=== PATIENT | male | born 1980 | race Two or more races ===

== ENCOUNTER 2024-08-14 03:43 | Emergency (ER) | payer OTHER ==
[~2024-08-14] VITALS: Ht 185.4 cm; Wt 105.2 kg
[2024-08-14 04:30] VITALS: BP 167/109; PULSE 93; RESP 16; TEMP 98.7; O2SAT 96
--- NOTE | 2024-08-14 05:27 | ED.PDOC ---
Back pain HPI HPI Comments PATIENT COMES WITH C/C OF RIGHT ANKLE PAIN 12/10. PATIENT REPORTS THAT HE WAS GETTING OFF OF A FORK LIT AT WORK AND ROLLED HIS ANKLE, PATIENT REPORTS HEARING A POP. OBVIOUS SWELLING TO LATERAL RIGHT ANKLE. DENIES NUMBNESS OR WEAKNESS OR ANY OTHER KNOWN INJURY. Chief Complaint: Lower Extremity Time Seen by MD: 03:46 Primary Care Provider: UNKNOWN Reviewed Notes: Nurses Notes, Medications, Allergies Information Source: Patient Mode of Arrival: Ambulatory Past Medical History PAST MEDICAL HISTORY: Denies Surgical History: Denies all surgeries Family History Family History: Unknown Social History Smoker: Non-Smoker Alcohol: Denies ETOH Use Drugs: Denies Drug Use Constitutional: denies: chills, diaphoresis, fatigue, fever, malaise, sweats, weakness, others EENTM: denies: blurred vision, double vision, ear bleeding, ear discharge, ear drainage, ear pain, ear ringing, eye pain, eye redness, hearing loss, mouth pain, mouth swelling, nasal discharge, nose bleeding, nose congestion, nose dawson n, photophobia, tearing, throat pain, throat swelling, voice changes, others Respiratory: denies: cough, hemoptysis, orthopnea, SOB at rest, shortness of breath, SOB with excertion, stridor, wheezing, others Cardiovascular: denies: chest pain, dizzy spells, diaphoresis, Dyspnea on exertion, edema, irregular heart beat, left arm pain, lightheadedness, palpitations, PND, syncope, others Gastrointestinal: denies: abdomen distended, abdominal pain, blood streaked bowels, constipated, diarrhea, dysphagia, difficulty swallowing, hematemesis, melena, nausea, poor appetite, poor fluid intake, rectal bleeding, rectal pain, vomiting, others Genitourinary: denies: burning, dysuria, flank pain, frequency, hematuria, incontinence, penile discharge, penile sore, pain, testicle pain, testicle swelling, urgency, others Neurological: denies: dizziness, fainting, headache, left sided numbness, left sided weakness, numbness, paresthesia, pre-existing deficit, right sided numbness, right sided weakness, seizure, speech problems, tingling, tremors, weakness, others Musculoskeletal: reports: joint swelling (RIGHT ANKLE LATERAL ASPECT); denies: back pain, gout, joint pain, muscle pain, muscle stiffness, neck pain, others Integumetry: denies: bruises, change in color, change in hair/nails, dryness, laceration, lesions, lumps, rash, wounds, others Allergic/Immunocompromised: denies: Difficulty Healing, Frequent Infections, Hives, Itching, others Hematologic/Lymphatic: denies: anemia, blood clots, easy bleeding, easy bruising, swollen glands, others Endocrine: denies: excessive hunger, excessive sweating, excessive thirst, excessive urination, flushing, intolerance to cold, intolerance to heat, unexplained weight gain, unexplained weight loss, others Psychiatric: denies: anxiety, bipolar disorder, depression, hopeless, panic disorder, schizophrenia, sleepless, suicidal, others Physical Exam General Appearance: No Apparent Distress, Normal HEENT: Pharynx Normal Neck: Full Range of Motion, Non-Tender Respiratory: Lungs Clear, No Respiratory Distress, Normal Breath Sounds Cardiovascular: No Murmur, Normal Peripheral Pulses, Regular Rate/Rhythm Breast Exam: Deferred Gastrointestinal: Non Tender, Soft Genitalia: Deferred Pelvic: Deferred Rectal: Deferred Extremities: Normal capillary refill, Normal inspection, Normal range of motion, Non-tender, No pedal edema Musculoskeletal : Location: Right Extremity Location: Ankle (MODERATE EDEMA LATERAL ASPECT WITH MODERATE TENDERNESS. 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 Was a procedure done?: No Back Pain Differential Dx Differential Diagnosis: Fracture, Musculoskeletal Pain X-Ray, Labs, Meds, VS Vital Signs Date Time Temp Pulse Resp B/P (MAP) Pulse Ox O2 Delivery O2 Flow Rate FiO2 08/14/24 04:30 98.7 93 16 167/109 (128) 96 98.7 X-Ray, Labs, Meds, VS Comment RIGHT ANKLE X-RAY SHOWS NO ACUTE FRACTURES OSSEOUS LESIONS OR DISLOCATIONS DOES SHOW MODERATE SOFT TISSUE SWELLING. PATIENT PLACED IN VELCRO ANKLE SPLINT AND CRUTCHES PROVIDED. SCRIPT IBUPROFEN TAKE MEDICATIONS PRESCRIBED SIDE EFFECTS DISCUSSED. ADVISED PATIENT ON RICE. ADVISED TO FOLLOW UP WITH THE EMPLOYEE [facility]. CONSIDER FURTHER IMAGING IF SYMPTOMS PERSIST SUCH MRI OR REPEAT X-RAY IN 7 DAYS. ER RETURN PRECAUTIONS GIVEN PATIENT INDICATES UNDERSTANDING AND AGREES WITH DISCHARGE PLAN OF CARE. Time of 1ST Reevaluation: 05:24 Reevaluation 1ST: Unchanged Time of 2ND Reevaluation: 05:47 Reevaluation 2ND: Improved Patient Education/Counseling: Diagnosis, Treatment, Prognosis, Need For Follow Up Family Education/Counseling: No Family Present Departure 1 Departure Time of Disposition: 05:47 Impression: Primary Impression: Moderate right ankle sprain Qualified Codes: S93.401A - Sprain of unspecified ligament of right ankle, initial encounter Disposition: HOME / SELF CARE / HOMELESS Condition: Stable e-Prescriptions Ibuprofen (Ibuprofen) 800 Mg Tab 800 MG PO Q8HP PRN for 6 Days, #18 TAB Prov: ZACHARY KWON 08/14/24 Discharged With: Self Critical Care Note Critical Care Time?: No Stability Stability form required: ZACHARY Barksdale Aug 14, 2024 05:27
--- NOTE | 2024-08-14 05:41 | DVH ---
EXAM: XR Right Ankle Complete, 3 or More Views CLINICAL INDICATION: INJURY TECHNIQUE: Frontal, lateral and oblique views of the right ankle. COMPARISON: None FINDINGS: BONES/JOINTS: See below. SOFT TISSUES: Soft tissue swelling without acute fracture. OTHER FINDINGS: . . .. IMPRESSION: 1. Soft tissue swelling without acute fracture. 2. If symptoms persist, further evaluation with CT is recommended.
[2024-08-14] MEDS ORDERED: IBUP-1456 PO (05:46)
[2024-08-14] MEDS: KETOROLAC TROMETH 60MG/2ML VIAL IM ONE (06:12)
== END 2024-08-14 06:23 | disposition home or self-care (01) ==
LOC: ER 03:43
DX: S93.401A Sprain of unspecified ligament of right ankle, initial encounter (principal); X58.XXXA Exposure to other specified factors, initial encounter; Y93.89 Activity, other specified; Y92.89 Other specified places as the place of occurrence of the external cause; Y99.8 Other external cause status
CPT/HCPCS: 29515; 73610; 96372; 99283; J1885